=== PATIENT | female | born 1960 | race Caucasian/White ===

== ENCOUNTER 2021-08-26 06:09 | Day surgery (SDC) | payer MEDICAID ==
[~2021-08-26] VITALS: Ht 144.8 cm; Wt 80.7 kg
[2021-08-26] MEDS ORDERED: ACETAMINOPHEN I.V. 1000 MG 100 ML IV ONE (08:04)
[2021-08-26] MEDS ORDERED: METOCLOPRAMIDE HCL 10 MG/2 ML VIAL IVP PRN (09:30)
[2021-08-26] MEDS ORDERED: MEPERIDINE HCL/PF 25 MG/ML DISP.SYRIN IVP PRN (09:30)
[2021-08-26] MEDS ORDERED: LABETALOL 100 MG/ 20ML VIAL IVP PRN (09:30)
[2021-08-26] MEDS ORDERED: HYDROmorphone 1 MG/ML INJ. CARTRIDGE IVP PRN (09:30)
[2021-08-26] MEDS ORDERED: LR 1,000 ML IV SCH (09:30)
[2021-08-26] MEDS ORDERED: hydrALAZINE HCL 20 MG/ML VIAL IVP PRN (09:30)
[2021-08-26] MEDS ORDERED: MIDAZOLAM HCL 2 MG/2 ML VIAL (VERSED) IVP PRN (09:30)
[2021-08-26] MEDS ORDERED: ROCURONIUM BROMIDE 10 MG/ML (ZEMURON) ONE (10:30)
[2021-08-26] MEDS ORDERED: LR 1,000 ML IV.SOLN IV ONE (10:30)
[2021-08-26] MEDS ORDERED: EPINEPHrine HCL 1 MG/ML VIAL ONE (10:30)
[2021-08-26] MEDS ORDERED: LIDOCAINE MPF 2% 5mL VIAL INJ ONE (10:30)
[2021-08-26] MEDS ORDERED: NS IRRIG SOLN 1000 ML IR ONE (10:30)
[2021-08-26] MEDS ORDERED: fentaNYL CITRATE 250 MCG/5 ML AMP ONE (10:30)
[2021-08-26] MEDS ORDERED: DESFLURANE 15 MIN GAS INH ONE (10:30)
[2021-08-26] MEDS ORDERED: MIDAZOLAM HCL 5 MG/ML VIAL (VERSED) IV ONE (10:30)
[2021-08-26] MEDS ORDERED: DEXAMETHASONE SOD PHOSPHATE 4 MG/ML VIAL ONE (10:30)
[2021-08-26] MEDS ORDERED: PROPOFOL 200MG/ 20ML VIAL (DIPRIVAN) IV ONE (10:30)
[2021-08-26] MEDS ORDERED: SUGAMMADEX SODIUM 200 MG/2 ML VIAL IV ONE (10:30)
[2021-08-26] MEDS ORDERED: ONDANSETRON HCL 4 MG/2 ML VIAL ONE (10:30)
[2021-08-26] MEDS ORDERED: ePHEDrine sulfate 50 MG/ML VIAL ONE (10:30)
[2021-08-26] MEDS: HYDROmorphone 1 MG/ML INJ. CARTRIDGE IVP PRN ×2 (10:50→11:08)
[2021-08-26] MEDS ORDERED: HYDROmorphone 1 MG/ML INJ. CARTRIDGE ONE (10:50)
[2021-08-26] MEDS ORDERED: BENZOCAINE/MENTHOL 1 EACH LOZENGE MM PRN (11:15)
[2021-08-26] MEDS ORDERED: hydrALAZINE HCL 20 MG/ML VIAL ONE (11:25)
[2021-08-26 13:37] VITALS: BP_SYST 126
== END 2021-08-26 14:30 | disposition home or self-care (01) ==
LOC: SDS 06:09 → SMU 06:17 → SDS 14:30
PROVIDERS: ATTEND Otolaryngology
DX: J34.89 Other specified disorders of nose and nasal sinuses (principal); D38.5 Neoplasm of uncertain behavior of other respiratory organs; J34.3 Hypertrophy of nasal turbinates; J34.2 Deviated nasal septum; E11.49 Type 2 diabetes mellitus with other diabetic neurological complication; Z79.899 Other long term (current) drug therapy; Z20.822 Contact with and (suspected) exposure to COVID-19
CPT/HCPCS: 30140; 30520; 36415 ×2; 82962; 87426; 88305; 88311; J0131; J0171; J1100; J1170; J2001; J2250; J2405; J2704; J3010; J3465; J3490; J7120; U0003; 88304; J0360